=== PATIENT | male | born 2000 | race Caucasian/White ===

== ENCOUNTER 2024-09-05 17:39 | Emergency (ER) | payer OTHER, SELFPAY ==
[2024-09-05 17:43] VITALS: BP 106/82
[2024-09-05 17:56] VITALS: BP 153/75
[2024-09-05] MEDS: PEPCID 20 MG IV (17:58)
[2024-09-05] MEDS: BENADRYL 25 MG IV (17:59)
--- NOTE | 2024-09-05 17:59 | ED.GENMED ---
History of Present Illness
General
Chief Complaint: Allergic Reaction
Source: patient
Time Seen by Provider: 09/05/24 17:48
History of Present Illness
History of Present Illness:
23-year-old male with no significant past medical history presents to the emergency department for evaluation of suspected allergic reaction after receiving 2 cortisone injections in both knees around 4:00 this afternoon. Patient did take 25 mg of
Benadryl prior to arrival with some improvement. Initially noted a itchy scratchy throat and the body hives but currently states only symptom is the body hives and generalized itching. Patient denies any cough, vomiting or any respiratory concerns
presently. States this was the first time he received cortisone injections. Patient states that due to previous hockey injuries and knee pain is why he received the injections today.
Past History
Past History
ED Past Medical History: None
ED Past Surgical History: None
Social History
Tobacco: Non-smoker
Alcohol: None
Drug: None
Personal: Single
Living: with family
Review of Systems
Review of Systems
All Other Systems: ROS reviewed and negative except as documented in HPI and ROS
Phy Exam
Physical Exam
Physical Exam:
GENERAL: Alert , in no apparent distress
EYE: conjunctiva clear
NECK: Supple, no significant adenopathy.
ENT: o/p clr, mmm. no tonsillar edema, no stridor, tolerating secretions
CARDIAC: Regular rate and rhythm
LUNGS: Clear breath sounds bilaterally, no acute respiratory distress, no wheezes/rales/rhonchi
NEUROLOGICAL: Alert and oriented
SKIN: Warm and dry, diffuse hives to chest/abd/back and b/l UE and LE
MUSCULOSKELETAL: well perfused.
PSYCH: Normal and appropriate interaction.
Scores
Heart Failure Risk
Heart Failure Risk Score: Not Applicable
Heart Score for Chest Pain Patients
STEMI patient?: Not applicable
Withdrawal Assessment of Alcohol
Withdrawal Assessment Completed?: Not applicable
Course
Orders/Labs/Results
Orders:
Orders
09/05/24 17:55
Diphenhydramine [Benadryl] 25 mg IV NOW STA
Famotidine [Pepcid] 20 mg IV NOW STA
09/05/24 19:21
EPINEPHrine PF [Adrenalin] 0.3 mg IM NOW STA
Vital Signs
Initial and Last Documented VS:
Initial Vital Signs
Temp Pulse Resp BP Pulse Ox
98 F 79 18 106/82 94
09/05/24 17:43 09/05/24 17:43 09/05/24 17:43 09/05/24 17:43 09/05/24 17:43
Last Documented Vital Signs
Temp Pulse Resp BP Pulse Ox
98 F 77 18 115/50 96
09/05/24 17:43 09/05/24 20:30 09/05/24 21:00 09/05/24 20:00 09/05/24 20:30
MDM/Problems Addressed
Differential Diagnosis Includes:
hives, no current signs of anaphylaxis, no signs of infection
MDM/Problems Addressed:
23-year-old male presenting to the emergency department for evaluation of hives that started approximately 1 hour after receiving cortisone injections in both knees. Patient initially had throat itching but states after taking the Benadryl this
subsided and he notes that the hives seem to be improving as well. Still noted to have diffuse hives. No respiratory component. Will treat with additional Benadryl and Pepcid here. Will avoid further steroid as unclear as to what exactly patient
did have this reaction to and family is not sure exactly what type of steroid injection patient received. Disposition pending
*Pulse Oximetry
Patient hypoxic: no
*Critical Care Note
Total Time (30-74mins, 75-104mins- exclusive of procedures): Not Applicable
Comment
Comment:
On initial reevaluation patient's hives are significantly improved however about 20 minutes after this evaluation patient noted recurrence of hives and throat itchiness sensation. Given we still do not know if the hypersensitivity reaction was to
the steroid will continue to avoid this so we will give dose of IM epinephrine.
Patient Management
Social determinants of health affecting care: Living situation and Strong social support
Escalation/DeEscalation of care consider admission/obs:
Patient continues to feel much better following medications. No respiratory distress or signs of anaphylaxis. Feels comfortable being discharged home. Prescription for EpiPen sent to pharmacy. Patient and mother aware of return precautions to
the ER.
ED Attending Note
-
Portions of this chart may have been created with voice recognition software.� Occasional wrong word or��sound alike� substitutions may have occurred due to the inherent limitations of voice recognition software.
Discharge Plan
Departure
Patient Disposition: Home (Routine Discharge)
Date of Disposition: 09/05/24
Time of Disposition: 21:07
Patient with high blood pressure during this ER visit?: No
Discharge Problem:
Hives
Instructions: Hives (DC)
Prescriptions:
New
epinephrine [EpiPen 2-Adan] 0.3 mg/0.3 mL auto-injector
0.3 mg IM ONCE Qty: 2 0RF
No Action
lmkfwgrwli-dhtbyoyjaelv-wbtoim 1 CAP capsule
1 cap PO DAILY
cholecalciferol (vitamin D3) 2,000 UNIT tablet
5,000 unit PO DAILY
pediatric multivitamin no.17 [Animal Shapes] 1 EACH tablet,chewable
1 ea PO DAILY
Interventions
Interventions:
*Risk Screen - Suicide Last Done: 09/05/24 18:18
*General Assessment Last Done: 09/05/24 18:18
*Neglect/Abuse Screening Last Done: 09/05/24 18:18
ED- Fall Risk Assessment Last Done: 09/05/24 18:18
*ED COVID-19 Vaccine History Last Done: 09/05/24 18:18
ED- Cardiac Assessment Last Done: 09/05/24 18:18
ED- Pulmonary Assessment Last Done: 09/05/24 18:18
ED-Skin Assessment Last Done: 09/05/24 18:18
Discharge Date and Time
Print Language: GABONESE
[2024-09-05 18:00] VITALS: BP 118/60
[2024-09-05 18:04] VITALS: BMI 22.3
[2024-09-05 19:00] VITALS: BP 107/56
[2024-09-05] MEDS: ADRENALIN 0.3 MG IM (19:30)
[2024-09-05 20:00] VITALS: BP 115/50
== END 2024-09-05 21:25 | disposition home or self-care (01) ==
LOC: EMR 17:39
PROVIDERS: EMERGENCY PHYSICIAN Emergency Medicine; FAMILY PHYSICIAN Family Medicine
DX: L50.9 Urticaria, unspecified (principal)
CPT/HCPCS: 96374; 96375; 96372; 99284

== ENCOUNTER 2024-09-05 23:03 | Emergency (ER) | payer OTHER, SELFPAY ==
[2024-09-05 23:08] VITALS: BP 141/83
[2024-09-05 23:15] VITALS: BP 132/69
[2024-09-05 23:16] VITALS: BMI 23.0
[2024-09-06] VITALS: BP 127/67
[2024-09-06] MEDS: BENADRYL 25 MG IV (00:06)
[2024-09-06] MEDS: NSS 1000 IV (00:07)
--- NOTE | 2024-09-06 00:11 | ED.GENMED ---
History of Present Illness
General
Chief Complaint: Allergic Reaction
Source: patient
Exam Limitations: none
Time Seen by Provider: 09/05/24 23:33
History of Present Illness
History of Present Illness:
23-year-old male presents for reevaluation. He was here earlier today after having an allergic reaction. Earlier in the day he had cortisone injections into both knees. Shortly after this he developed diffuse hives. He had Benadryl at home prior
to coming in the first time and received Pepcid Benadryl and an EpiPen when he was here the first time. He left shortly after he went home his hives returned and he started to have rash he throat. His mother gave another 25 mg of Benadryl. At the
time my exam he is about an hour and a half after the dose of Benadryl mother notes some improvement. He denies nausea vomiting or respiratory difficulty. He notes itchy skin.
Past History
Past History
ED Past Medical History: None
ED Past Surgical History: None
Social History
Tobacco: Non-smoker
Alcohol: None
Drug: None
Personal: Single
Living: with family
Phy Exam
Physical Exam
Physical Exam:
General: Well-appearing male no acute respiratory distress
HEENT: Normocephalic posterior pharynx without erythema or exudate neck is supple no stridor or trismus
Heart: Regular rate and rhythm no murmurs
Lungs: Clear no wheeze
Skin: Diffuse urticarial rash over the face trunk hands and feet as well as arms and legs
Course
Orders/Labs/Results
Orders:
Orders
09/05/24 23:55
0.9% Sodium Chloride 1000 ml [Nss] 1,000 ml IV BOLUS
Diphenhydramine [Benadryl] 25 mg IV NOW STA
Vital Signs
Initial and Last Documented VS:
Initial Vital Signs
Pulse Resp BP Pulse Ox
100 22 141/83 97
09/05/24 23:08 09/05/24 23:08 09/05/24 23:08 09/05/24 23:08
Last Documented Vital Signs
Pulse Resp BP Pulse Ox
100 22 132/69 98
09/05/24 23:08 09/05/24 23:08 09/05/24 23:15 09/05/24 23:16
MDM/Problems Addressed
Differential Diagnosis Includes:
Urticaria. Question allergic reaction to recent injection into both knees for stress response. He had near resolution of symptoms at his prior visit however symptoms returned. Currently no respiratory distress. Had long discussion with patient
and mother regarding treatment options. Did discuss role for recurrent epinephrine versus Decadron injection versus more antihistamines. Family against any further steroid medication to be administered. Given the lack of respiratory distress will
do another dose of IV Benadryl.
*Critical Care Note
Total Time (30-74mins, 75-104mins- exclusive of procedures): Not Applicable
Update Note
Update Note:
Patient reevaluated multiple times. Rash is nearly resolved. No respiratory distress. They declined any more steroid medication. They filled his EpiPen from the pharmacy. Recommended continued use of Benadryl as needed stable for discharge with
follow-up
ED Attending Note
-
Portions of this chart may have been created with voice recognition software.� Occasional wrong word or��sound alike� substitutions may have occurred due to the inherent limitations of voice recognition software.
Discharge Plan
Departure
Patient Disposition: Home (Routine Discharge)
Date of Disposition: 09/06/24
Time of Disposition: 02:09
Patient with high blood pressure during this ER visit?: No
Discharge Problem:
Allergic reaction
Prescriptions:
No Action
[id number]-mnpmrhapydbj-uwauyc 1 CAP capsule
1 cap PO DAILY
cholecalciferol (vitamin D3) 2,000 UNIT tablet
5,000 unit PO DAILY
pediatric multivitamin no.17 [Animal Shapes] 1 EACH tablet,chewable
1 ea PO DAILY
epinephrine [EpiPen 2-Adan] 0.3 mg/0.3 mL auto-injector
0.3 mg IM ONCE Qty: 2 0RF
Referrals:
Anthony Virk MD [Family Provider] -
Activity Restrictions/Additional Instructions:
Continue Benadryl every 4 hours if needed. Use EpiPen if needed for respiratory distress. Follow-up with your doctor otherwise
Interventions
Interventions:
*Risk Screen - Suicide Last Done: 09/05/24 23:04
*General Assessment Last Done: 09/05/24 23:16
*Neglect/Abuse Screening Last Done: 09/05/24 23:16
ED- Fall Risk Assessment Last Done: 09/05/24 23:16
*ED COVID-19 Vaccine History Last Done: 09/05/24 23:16
ED- Cardiac Assessment Last Done: 09/05/24 23:16
ED- Pulmonary Assessment Last Done: 09/05/24 23:16
ED-Skin Assessment Last Done: 09/05/24 23:16
Discharge Date and Time
Print Language: LAO
[2024-09-06 01:00] VITALS: BP 125/64
[2024-09-06 02:00] VITALS: BP 116/72
== END 2024-09-06 02:25 | disposition home or self-care (01) ==
LOC: EMR 23:03
PROVIDERS: EMERGENCY PHYSICIAN Student in an Organized Health Care Education/Training Program; FAMILY PHYSICIAN Family Medicine
DX: T78.40XA Allergy, unspecified, initial encounter (principal); X58.XXXA Exposure to other specified factors, initial encounter; R21 Rash and other nonspecific skin eruption
CPT/HCPCS: 96374; 96361; 99284